=== PATIENT | female | born 1995 | race Caucasian/White ===

== ENCOUNTER 2024-05-17 15:39 | Emergency (ER) | payer BC ==
[~2024-05-17] VITALS: Ht 177.8 cm; Wt 74.8 kg
[2024-05-17 16:27] LABS: SITE, VBG VBG - N/A; VBG BASE EXCESS -0.2 mmol/L (-2.0-3.0); VBG COHb 0.3 % (0.5-1.5); VBG HCO3 24.1 mmol/L (22.0-29.0); VBG MetHb 0.2 % (0.5-1.5); VBG O2Hb 59.3 % (0-79); VBG OXYGEN SATURATION 59.6 % (60.0-85.0); VBG PCO2 38.4 mmHg (38.0-54.0); VBG PH 7.415 (7.320-7.430); VBG PO2 29.7 mmHg (23.0-48.0); VBG TOTAL HEMOGLOBIN 14.9 G/dL (12.0-16.0)
[2024-05-17 16:41] LABS: BASOPHILS % (AUTO) 0.7 % (0.0-2.0); EOSINOPHILS # (AUTO) 0.1 K/uL (0.0-0.7); EOSINOPHILS % (AUTO) 1.5 % (0.0-6.0); HEMATOCRIT 40 % (33-45); LYMPHOCYTES # (AUTO) 1.5 K/uL (0.8-4.8); LYMPHOCYTES % (AUTO) 25.1 % (20.0-44.0); MEAN CORPUSCULAR HEMOGLOBIN 30 PG (26.0-33.0); MEAN CORPUSCULAR HGB CONC 35 g/dl (31.0-36.0); MEAN CORPUSCULAR VOLUME 87 fL (82-100); MONOCYTES # (AUTO) 0.5 K/uL (0.1-1.30); MONOCYTES % (AUTO) 8.6 % (2.0-12.0); NEUTROPHILS # (AUTO) 3.7 K/uL (1.8-8.9); NEUTROPHILS % (AUTO) 64.1 % (43.0-81.0); PLATELET COUNT (AUTO) 214 K/uL (150-450); RED BLOOD CELL COUNT(AUTO) 4.65 MIL/uL (4.0-5.2); RED CELL DISTRIBUTION WIDTH 12.1 % (11.5-15.0); WHITE BLOOD COUNT (AUTO) 5.8 K/uL (4.3-11.0)
[2024-05-17 16:53] LABS: CALCIUM, SERUM 9.2 mg/dL (8.5-10.1); CREATININE 0.9 mg/dL (0.6-1.3)
[2024-05-17 17:39] VITALS: BP 101/68; TEMP 97.9; O2SAT 99
== END 2024-05-17 17:39 | disposition home or self-care (01) ==
LOC: ER 15:47
DX: T59.811A Toxic effect of smoke, accidental (unintentional), initial encounter (principal); R10.2 Pelvic and perineal pain; R06.02 Shortness of breath; R07.89 Other chest pain; R11.0 Nausea; R42 Dizziness and giddiness; E03.9 Hypothyroidism, unspecified; E78.5 Hyperlipidemia, unspecified; Y92.89 Other specified places as the place of occurrence of the external cause
CPT/HCPCS: 36415; 80048-TC; 82803-TC; 84702-TC; 85025-TC

== ENCOUNTER 2024-12-19 20:21 | Emergency (ER) | payer BC ==
[~2024-12-19] VITALS: Ht 177.8 cm; Wt 85.3 kg
[2024-12-19] MEDS ORDERED: ONDANSETRON 4 MG TAB.RAPDIS ONE (23:47)
[2024-12-19] MEDS ORDERED: IBUPROFEN 400 MG TABLET ONE (23:47)
[2024-12-19] MEDS: ONDANSETRON 4 MG TAB.RAPDIS SL ONE (23:52)
[2024-12-19] MEDS: IBUPROFEN 400 MG TABLET PO ONE (23:52)
[2024-12-20 00:18] VITALS: BP 123/70; TEMP 98; O2SAT 97
== END 2024-12-20 00:19 | disposition home or self-care (01) ==
LOC: ER 20:22
DX: S09.90XA Unspecified injury of head, initial encounter (principal); E03.9 Hypothyroidism, unspecified; E78.5 Hyperlipidemia, unspecified; F10.129 Alcohol abuse with intoxication, unspecified; J45.909 Unspecified asthma, uncomplicated; Z60.2 Problems related to living alone; W22.8XXA Striking against or struck by other objects, initial encounter; Y93.89 Activity, other specified; Y92.89 Other specified places as the place of occurrence of the external cause; Y99.8 Other external cause status; Y90.9 Presence of alcohol in blood, level not specified
CPT/HCPCS: 99283; Q0162